=== PATIENT | female | born 1980 | race Caucasian/White ===

== ENCOUNTER 2018-11-17 09:27 | Inpatient (IN) | payer BC ==
[2018-11-17] MEDS ORDERED: Sodium Chloride 0.9% 10 ML Syringe FLUSH PRN (10:02)
[2018-11-17] MEDS ORDERED: Ondansetron 4 MG/2 ML SDV IVPUSH PRN (10:02)
[2018-11-17] MEDS ORDERED: Nalbuphine 20 MG/ML 1 ML Syringe IVPUSH PRN (10:02)
[2018-11-17] MEDS ORDERED: Oxytocin/Lactated Ringers 10 UNIT/1,000 ML BAG IV SCH ×2 (10:15)
[2018-11-17] MEDS: Lactated Ringers 1,000 ML IV SCH ×2 (11:23→14:46)
[2018-11-17] MEDS ORDERED: fentaNYL 100 MCG/2 ML SDV EPIDUR PRN (11:52)
[2018-11-17] MEDS ORDERED: diphenhydrAMINE 50 MG/ML SDV IVPUSH PRN (11:52)
[2018-11-17] MEDS ORDERED: ePHEDrine 50 MG/ML SDV IVPUSH PRN (11:52)
[2018-11-17] MEDS ORDERED: fentaNYL/Bupivacaine-NS 2 MCG/ML-0.125%/PF 100 ML Bag EP SCH (12:00)
--- NOTE | 2018-11-17 12:54 | PCM.PREANE ---
Preanesthetic Assessment - Procedure Proposed Procedure: marcio - Anesthesia/Transfusion/Family Hx Anesthesia History: Prior Anesthesia Without Reaction Family History of Anesthesia Reaction: No Transfusion History: No Prior Transfusion(s) - Review of Systems General: No Symptoms Pulmonary: No Symptoms Cardiovascular: No Symptoms Gastrointestinal: No Symptoms Neurological: No Symptoms Other: Reports: None - Physical Assessment Respiratory Rate: 18 Vital Signs: Last Vital Signs Temp 99.3 F 11/17/18 09:42 Pulse 81 11/17/18 09:42 Resp 18 11/17/18 09:42 BP 131/75 11/17/18 09:42 Pulse Ox Height: 5 ft 7 in Weight: 99.337 kg ASA Class: 2 Mental Status: Alert & Oriented x3 Airway Class: Mallampati = 1 Dentition: Reports: Normal Dentition Thyro-Mental Finger Breadths: 3 Mouth Opening Finger Breadths: 3 ROM/Head Extension: Full Lungs: Clear to Auscultation, Normal Respiratory Effort Cardiovascular: Regular Rate, Regular Rhythm - Lab Values: Laboratory Last Values WBC 11.41 K/mm3 (3.98-10.04) H 11/17/18 10:20 RBC 3.88 M/mm3 (3.98-5.22) L 11/17/18 10:20 Hgb 12.4 gm/L (11.2-15.7) 11/17/18 10:20 Hct 37.6 % (34.1-44.9) 11/17/18 10:20 MCV 96.9 fl (79.4-94.8) H 11/17/18 10:20 MCH 32.0 pg (25.6-32.2) 11/17/18 10:20 MCHC 33.0 g/dl (32.2-35.5) 11/17/18 10:20 RDW Std Deviation 44.7 fL (36.4-46.3) 11/17/18 10:20 Plt Count 222 K/mm3 (182-369) 11/17/18 10:20 MPV 10.2 fl (9.4-12.3) 11/17/18 10:20 Neut % (Auto) 75.7 % (34.0-71.1) H 11/17/18 10:20 Lymph % (Auto) 12.8 % (19.3-51.7) L 11/17/18 10:20 [place] % (Auto) 8.1 % (4.7-12.5) 11/17/18 10:20 Eos % (Auto) 1.1 (0.7-5.8) 11/17/18 10:20 Baso % (Auto) 0.2 % (0.1-1.2) 11/17/18 10:20 Neut # (Auto) 8.64 K/mm3 (1.56-6.13) H 11/17/18 10:20 Lymph # (Auto) 1.46 K/mm3 (1.18-3.74) 11/17/18 10:20 [place] # (Auto) 0.92 K/mm3 (0.24-0.36) H 11/17/18 10:20 Eos # (Auto) 0.13 K/mm3 (0.04-0.36) 11/17/18 10:20 Baso # (Auto) 0.02 K/mm3 (0.01-0.08) 11/17/18 10:20 Manual Slide Review Abnormal smear 11/17/18 10:20 - Allergies Allergies/Adverse Reactions: Allergies Allergy/AdvReac Type Severity Reaction Status Date / Time No Known Allergies Allergy Verified 11/17/18 10:01 - Blood Blood Available: No - Acknowledgements Anesthesia Type Planned: Epidural Pt an Appropriate Candidate for the Planned Anesthesia: Yes Alternatives and Risks of Anesthesia Discussed w Pt/Guardian: Yes Pt/Guardian Understands and Agrees with Anesthesia Plan: Yes PreAnesthesia Questionnaire - Past Health History Medical/Surgical History: Denies Medical/Surgical History Cardiovascular History: Reports: None Respiratory History: Reports: None Gastrointestinal History: Reports: None : 1 Para: 0 - History Comment History Comment: vits at home - SUBSTANCE USE Smoking Status *Q: Never Smoker Tobacco Use Within Last Twelve Months: No Second Hand Smoke Exposure: No Days Per Week of Alcohol Use: 0 Recreational Drug Use History: No - CURRENT (IN HOUSE) MEDS Current Meds: Current Medications Diphenhydramine HCl (Benadryl) 25 mg IVPUSH Q6H PRN PRN Reason: pruritis Ephedrine Sulfate (Ephedrine Sulfate) 5 mg IVPUSH ASDIRECTED PRN PRN Reason: Hypotension Fentanyl (Sublimaze) 100 mcg EPIDUR Q3H PRN PRN Reason: Pain Last Admin: 11/17/18 12:52 Dose: 100 mcg Fentanyl/Bupivacaine HCl (Xagoxync-Rjqog-Lf 2 Mcg/Ml-0.125%) 100 ml EP ASDIRECTED TIMOTHY Last Admin: 11/17/18 12:51 Dose: 100 ml Lactated Ringer's (Ringers, Lactated) 1,000 mls @ 100 mls/hr IV ASDIRECTED TIMOTHY Last Admin: 11/17/18 11:23 Dose: 100 mls/hr Oxytocin/Lactated Ringer's (Pitocin In Lr 10 Units/1,000 Ml) 10 unit in 1,000 mls @ 500 mls/hr IV .CONTINUOUS TIMOTHY Oxytocin/Lactated Ringer's (Pitocin In Lr 10 Units/1,000 Ml) 10 unit in 1,000 mls @ 12 mls/hr IV TITRATE TIMOTHY; Protocol Last Admin: 11/17/18 11:23 Dose: 2 munits/min, 12 mls/hr Nalbuphine HCl (Nubain) 10 mg IVPUSH Q2H PRN PRN Reason: pain Ondansetron HCl (Zofran) 4 mg IVPUSH Q4H PRN PRN Reason: Nausea/Vomiting Sodium Chloride (Saline Flush) 10 ml FLUSH ASDIRECTED PRN PRN Reason: Keep Vein Open
--- NOTE | 2018-11-17 14:34 | PCM.LDHP ---
L&D History of Present Illness - General Date of Service: 11/17/18 Admit Problem/Dx: Patient Status Order with Admit Dx/Problem 11/17/18 13:45 Admission Status [Patient Status] [ADT] Routine Admission Diagnosis/Problem Admission Diagnosis/Problem 11/17/18 14:26 Cleo is a 38-year-old 1 para 0 white female admitted in active labor with advanced cervical dilation. ALICIA is 11/11/2018 placer presently at 40 and 67 weeks gestational age. Source of Information: Patient History Limitations: Reports: No Limitations - History of Present Illness Introduction:: Cleo is a 38-year-old 1 para 0 white female at 40 and 6 weeks gestational age admitted in active labor. Has had onset of labor early this morning. No evidence rupture members at the time of admission. She has undergone artificial rupture membranes with resultant clear amniotic fluid. Contractions occurring every 3-7 minutes. CHECKER IN history 1 para 0 ALICIA 2018 as set by early ultrasound done at 12-6/7 weeks on 05/05/2018. Supported by second ultrasound done on 07/08/2018. Patient had menarche at age 14. Cycles every 28 days. Positive hCG on 03/21/2018. course was relatively unremarkable. Risk factors were advanced maternal age and primigravida status. Baby had initially a choroid plexus cyst but this result a second ultrasound. [place] depression screens: was score of 1/30. She is group B strep negative. She had [employer] testing which returned normal. She is desiring epidural in labor and delivery. Plans on breast-feeding. Tdap was given on 10/05/2018. Patient's first visit was on 05/05/2018. She had rated visits throughout the course with normal fundal height growth and normal vital signs. Her weight gain was from 176-212 pounds for a 36 pound weight gain. laboratory testing showed her blood to be positive with a negative rescue. First problems 13.6 g deciliter. Platelets at that time were 234,000. She is rubella immune. RPR is nonreactive. Urine culture was negative. GC and chlamydia assays are both negative as were the hepatitis B surface antigen and HIV assays. Second trimester labs show hemoglobin 12.1 g/dL. Platelets are 242,000. One-hour GTT was normal at 101. Group B strep screen negative. Allergies none Medications: 1. vitamins daily Past medical history: History of UTIs 10 years ago. Past surgical history 1. [place] tooth extraction 2008. 2. Nerve repair surgery 1999 Family history: Mother has had a history of miscarriage 2. Otherwise she is alive and well. Father is diagnosed with leukemia 2009. Also had asthma and rheumatoid arthritis. 2 brothers and 4 sisters with one sister with MS and one with thyroid disease. Maternal grandmother breast cancer history. Family history of cancer. She related issues and bleeding disorders. 3 aunts with breast cancer or over the age of 65. One and one with full mastectomy. Social history: Patient is . is Akbar Drummond. They live in [place]. She does not use any significant loss of call, drugs tobacco. Review of systems: In general patient has no complaints other than contractions. Baby has been active.. Skin: Negative Lungs: No infectious symptoms or shortness of breath Cardiovascular: No chest pain or exercise intolerance Breasts: No lumps, changes in size, pain, dimpling, discharge or axillary or supraclavicular concerns. GI: Negative : Negative other than changes associated with . Musculoskeletal: Negative Neurological: Negative In general the patient is well-developed, well-nourished, pleasant female of stated age in no acute distress. Is reporting contractions. Skin is warm dry without lesions. HEENT, neck and back within normal limits. Lungs are clear with good breath sounds in all lung solorio. Cardiovascular exam shows regular and rhythm without murmurs. Breast exam is deferred having been done at time of first visit found to be normal. Abdomen is gravid, fundal height consistent with gestational age. Last fundal height in clinic Genital shows cervix works as above. Extremities and neurological exam are grossly within normal limits. Pain Score: 8 - Related Data Allergies/Adverse Reactions: Allergies Allergy/AdvReac Type Severity Reaction Status Date / Time No Known Allergies Allergy Verified 11/17/18 10:01 Past Medical History - Past Health History Medical/Surgical History: Denies Medical/Surgical History Cardiovascular History: Reports: None Respiratory History: Reports: None Gastrointestinal History: Reports: None - History Comment History Comment: vits at home Social & Family History - Family History Family Medical History: Noncontributory - Tobacco Use Smoking Status *Q: Never Smoker Second Hand Smoke Exposure: No - Caffeine Use Caffeine Use: Reports: None - Alcohol Use Days Per Week of Alcohol Use: 0 - Recreational Drug Use Recreational Drug Use: No H&P Review of Systems - Review of Systems: Review Of Systems: See Below L&D Exam - Exam Exam: See Below - Vital Signs Vital Signs: Last Vital Signs Temp 37.4 C 11/17/18 09:42 Pulse 81 11/17/18 09:42 Resp 18 11/17/18 12:54 BP 131/75 11/17/18 09:42 Pulse Ox Weight: 99.337 kg - Patient Data Lab Results Last 24 hrs: Laboratory Results - last 24 hr 11/17/18 Range/Units 10:20 WBC 11.41 H (3.98-10.04) K/mm3 RBC 3.88 L (3.98-5.22) M/mm3 Hgb 12.4 (11.2-15.7) gm/L Hct 37.6 (34.1-44.9) % MCV 96.9 H (79.4-94.8) fl MCH 32.0 (25.6-32.2) pg MCHC 33.0 (32.2-35.5) g/dl RDW Std Deviation 44.7 (36.4-46.3) fL Plt Count 222 (182-369) K/mm3 MPV 10.2 (9.4-12.3) fl Neut % (Auto) 75.7 H (34.0-71.1) % Lymph % (Auto) 12.8 L (19.3-51.7) % [place] % (Auto) 8.1 (4.7-12.5) % Eos % (Auto) 1.1 (0.7-5.8) Baso % (Auto) 0.2 (0.1-1.2) % Neut # (Auto) 8.64 H (1.56-6.13) K/mm3 Lymph # (Auto) 1.46 (1.18-3.74) K/mm3 [place] # (Auto) 0.92 H (0.24-0.36) K/mm3 Eos # (Auto) 0.13 (0.04-0.36) K/mm3 Baso # (Auto) 0.02 (0.01-0.08) K/mm3 Manual Slide Review Abnormal smear Result Diagrams: 11/17/18 10:20 Problem List Initiated/Reviewed/Updated: Yes Orders Last 24hrs: Active Orders 24 hr Category Date Time Status Admission Status [Patient Status] [ADT] Routine ADT 11/17/18 13:45 Active Activity as Tolerated [RC] PFP Care 11/17/18 10:02 Active Communication Order [RC] ASDIRECTED Care 11/17/18 10:02 Active Heart Tones [RC] ASDIRECTED Care 11/17/18 10:02 Active Notify Provider [RC] ASDIRECTED Care 11/17/18 11:52 Active Notify Provider [RC] PFP Care 11/17/18 10:02 Active Notify Provider [RC] PRN Care 11/17/18 10:02 Active Peripheral IV Care [RC] . DIRECTED Care 11/17/18 10:02 Active Vital Signs [RC] PER UNIT ROUTINE Care 11/17/18 10:02 Active Regular Diet [DIET] Diet 11/17/18 Lunch Active RAPID PLASMA REAGIN,RPR [CHEM] Routine Lab 11/17/18 10:20 Received Lactated Ringers [Ringers, Lactated] 1,000 ml Med 11/17/18 10:15 Active IV ASDIRECTED Nalbuphine [Nubain] Med 11/17/18 10:02 Active 10 mg IVPUSH Q2H PRN Ondansetron [Zofran] Med 11/17/18 10:02 Active 4 mg IVPUSH Q4H PRN Oxytocin/Lactated Ringers [Pitocin in LR 10 Units/1,000 Med 11/17/18 10:15 Active ML] 10 unit in 1,000 ml IV .CONTINUOUS Oxytocin/Lactated Ringers [Pitocin in LR 10 Units/1,000 Med 11/17/18 10:15 Active ML] 10 unit in 1,000 ml IV TITRATE Sodium Chloride 0.9% [Saline Flush] Med 11/17/18 10:02 Active 10 ml FLUSH ASDIRECTED PRN diphenhydrAMINE [Benadryl] Med 11/17/18 11:52 Active 25 mg IVPUSH Q6H PRN ePHEDrine [ePHEDrine sulfate] Med 11/17/18 11:52 Active 5 mg IVPUSH ASDIRECTED PRN fentaNYL [Sublimaze] Med 11/17/18 11:52 Active 100 mcg EPIDUR Q3H PRN fentaNYL/Bupivacaine/NS/PF [aklqoIAZ-Iyadr-VL 2 MCG/ML- Med 11/17/18 12:00 Active 0.125%] 100 ml EP ASDIRECTED Electronic Heart Tones Ext w TOCO [WOMSER] Oth 11/17/18 10:02 Ordered Routine Electronic Heart Tones Internal [WOMSER] Per Unit Oth 11/17/18 10:02 Ordered Routine Peripheral IV Insertion Adult [OM.PC] Routine Oth 11/17/18 10:02 Ordered Resuscitation Status Routine Resus Stat 11/17/18 10:02 Ordered Medication Orders Diphenhydramine HCl (Benadryl) 25 mg IVPUSH Q6H PRN PRN Reason: pruritis Ephedrine Sulfate (Ephedrine Sulfate) 5 mg IVPUSH ASDIRECTED PRN PRN Reason: Hypotension Fentanyl (Sublimaze) 100 mcg EPIDUR Q3H PRN PRN Reason: Pain Last Admin: 11/17/18 12:52 Dose: 100 mcg Fentanyl/Bupivacaine HCl (Yaqsglzh-Wxqju-Oa 2 Mcg/Ml-0.125%) 100 ml EP ASDIRECTED TIMOTHY Last Admin: 11/17/18 12:51 Dose: 100 ml Lactated Ringer's (Ringers, Lactated) 1,000 mls @ 100 mls/hr IV ASDIRECTED TIMOTHY Last Admin: 11/17/18 11:23 Dose: 100 mls/hr Oxytocin/Lactated Ringer's (Pitocin In Lr 10 Units/1,000 Ml) 10 unit in 1,000 mls @ 500 mls/hr IV .CONTINUOUS TIMOTHY Oxytocin/Lactated Ringer's (Pitocin In Lr 10 Units/1,000 Ml) 10 unit in 1,000 mls @ 12 mls/hr IV TITRATE TIMOTHY; Protocol Last Titration: 11/17/18 13:47 Dose: 4 munits/min, 24 mls/hr Admin: 11/17/18 11:23 Dose: 2 munits/min, 12 mls/hr Nalbuphine HCl (Nubain) 10 mg IVPUSH Q2H PRN PRN Reason: pain Ondansetron HCl (Zofran) 4 mg IVPUSH Q4H PRN PRN Reason: Nausea/Vomiting Sodium Chloride (Saline Flush) 10 ml FLUSH ASDIRECTED PRN PRN Reason: Keep Vein Open Assessment/Plan Comment:: 1. 38 and 6 of week intrauterine , active labor, advanced cervical dilation. 2. Epidural for pain control in labor and delivery 3. Patient plans to breast-feed 4. RPR nonreactive, T dap up today 5. Group B strep screen negative Plan: 1. Anticipate normal spontaneous vaginal delivery 2. Epidural for pain control. 3. Breast-feeding support with consultants.
--- NOTE | 2018-11-17 17:21 | PCM.SN ---
- Free Text/Narrative Note: Delivery note: Cleo is a 38-year-old 1 now para 1001 white female was admitted in active labor on 11/17/2018. She is 40-6/7 weeks gestational age with an ALICIA of 11/11/2018. She progressed steadily towards complete cervical dilation by approximately 1430 hrs. She pushed for approximately 2-1/2 hours at which time she is becoming tired, some occasional late decelerations were being noted and decision was made to proceed to vacuum extraction delivery. The procedure, risks , benefits, alternatives such as and follow-up were discussed with patient. She appeared to understand, gave verbal approval and underwent vacuum extraction delivery. She had an epidural placed for labor analgesia. Vacuum extractor was placed and during the course of 1 contraction and baby's head was delivered. Delivered in a right occiput anterior position. Baby was placed on mom's abdomen. Cord was clamped 2 and cut by the baby's father. Cord blood was obtained. The umbilical cord had 3 vessels. Patient had a second-degree laceration with a small tear in the anterior capsule of the external anal sphincter. The capsule was repaired and the second- degree lacerations appear along with a small tear perpendicular to the perineal tear along the right medial labia. 3-0 Monocryl was used for the entire repair. Patient tolerated this well and epidural analgesia was used for laceration repair anesthesia. Placenta delivered in a Nichols presentation, appeared intact and complete and was discarded per patient desire. Pitocin had been started after delivery of the baby to facilitate increase in uterine tone and decrease the risk of bleeding. Estimated blood loss was 300 mL. Patient plans to breast-feed. Condition: Good
[2018-11-17] MEDS ORDERED: Acetaminophen 325 MG Tab PO PRN (17:33)
[2018-11-17] MEDS ORDERED: Witch Hazel Medicated Pads 40/Jar TOP PRN (17:33)
[2018-11-17] MEDS ORDERED: Lanolin 100% Cream 7 GM Tube TOP PRN (17:33)
[2018-11-17] MEDS ORDERED: Benzocaine/Menthol 20%-0.5% Spray 56 GM Canister TOP PRN (17:33)
[2018-11-17] MEDS: Docusate Sodium 100 MG Cap PO PRN (17:59)
[2018-11-17] MEDS: Ibuprofen 600 MG Tab PO PRN (17:59)
[2018-11-17] MEDS ORDERED: Lidocaine 1.5% with EPINEPHrine 1:200,000 5 ML Amp ONE (22:00)
[2018-11-17] MEDS ORDERED: Bupivacaine 0.25% 10 ML SDV ONE (22:00)
[2018-11-18] MEDS: Ibuprofen 600 MG Tab PO PRN ×2 (05:41→21:01)
--- NOTE | 2018-11-18 09:08 | PCM48HPAN ---
Post Anesthesia Note - EVALUATION WITHIN 48HRS OF ANESTHETIC Vital Signs in Normal Range: Yes Patient Participated in Evaluation: Yes Respiratory Function Stable: Yes Airway Patent: Yes Cardiovascular Function Stable: Yes Hydration Status Stable: Yes Pain Control Satisfactory: Yes Nausea and Vomiting Control Satisfactory: Yes Mental Status Recovered: Yes
--- NOTE | 2018-11-18 10:56 | PCM.SN ---
- Free Text/Narrative Note: Post Progress Note PPD # 1 Subjective: Doing well overall. Ambulating without difficulty. Lochia minimal. Voiding without difficulty. Tolerating regular diet without nausea or vomiting. Pain controlled with oral medications. Breast-feeding with minimal difficulty. Objective: Vitals: Vital Signs - 24 hr 11/17/18 11/18/18 11/18/18 12:54 04:19 08:21 Temperature 37.3 C 36.7 C Pulse, 88 73 Peripheral Respiratory 18 16 16 Rate Blood Pressure 108/65 111/61 O2 Sat by Pulse 99 99 Oximetry Physical Exam General: Alert and oriented, no acute distress Lungs: Clear to auscultation bilaterally Heart: Regular rate and rhythm Abdomen: Soft, minimal appropriate tenderness, non-distended, fundus midline, nontender, and at the umbilicus Extremities: Trace edema in bilateral lower extremities to mid shins ASSESSMENT: 38-year-old female s/p vacuum-assisted vaginal delivery PPD #1, complicated by advanced maternal age PLAN: Doing well Breast-feeding with minimal difficulty. Assist as needed Lochia minimal. Continue to monitor for appropriate lochia. Continue routine care Anticipate discharge home tomorrow Dwain Nelson MD 10:55 AM 11/18/2018
[2018-11-19] MEDS: Ibuprofen 600 MG Tab PO PRN ×2 (08:33→16:33)
[2018-11-19] MEDS: Docusate Sodium 100 MG Cap PO PRN (08:33)
[2018-11-19] MEDS ORDERED: Magnesium Hydroxide 400 MG/5 ML Susp 30 ML Cup PO ONE (11:40)
--- NOTE | 2018-11-19 11:46 | PCM.SN ---
- Free Text/Narrative Note: Post Progress Note PPD # 2 Subjective: Doing well overall. Ambulating without difficulty. Lochia minimal. Voiding without difficulty. Tolerating regular diet without nausea or vomiting. Pain decreasing and controlled with oral medications. Breast-feeding with formula stimulation for latching and otherwise minimal difficulty. Patient reports that she has not had a bowel movement in several days and has been taking the Colace stool softener. She is passing flatus without difficulty. Objective: Vitals: Vital Signs - 24 hr 11/18/18 11/18/18 11/19/18 18:16 20:49 03:24 Temperature 36.6 C 37.4 C 36.9 C Pulse, 87 92 75 Peripheral Respiratory 14 16 15 Rate Blood Pressure 127/65 112/59 L 99/58 L O2 Sat by Pulse 97 99 98 Oximetry Physical Exam General: Alert and oriented, no acute distress Lungs: Clear to auscultation bilaterally Heart: Regular rate and rhythm Abdomen: Soft, minimal appropriate tenderness, non-distended, fundus midline, nontender, and 2 fingerbreadths below the umbilicus Extremities: Trace edema in bilateral lower extremities to mid shins ASSESSMENT: 38-year-old female s/p vacuum-assisted vaginal delivery PPD #2, complicated by advanced maternal age PLAN: Doing well Breast-feeding with formula stimulation for latching. Assist as needed Lochia minimal. Continue to monitor for appropriate lochia. Milk of magnesia 30 mL 1 dose this morning prior to discharge to help with mild constipation after delivery. Continue routine care Discharge home today Dwain Nelson MD 11:45 AM 11/19/2018
--- NOTE | 2018-11-19 11:54 | PCM.DCSUM1 ---
Discharge Summary - Hospital Course Free Text/Narrative:: Delivery note: Cleo is a 38-year-old 1 now para 1001 white female was admitted in active labor on 11/17/2018. She is 40-6/7 weeks gestational age with an ALICIA of 11/11/2018. She progressed steadily towards complete cervical dilation by approximately 1430 hrs. She pushed for approximately 2-1/2 hours at which time she is becoming tired, some occasional late decelerations were being noted and decision was made to proceed to vacuum extraction delivery. The procedure, risks , benefits, alternatives such as and follow-up were discussed with patient. She appeared to understand, gave verbal approval and underwent vacuum extraction delivery. She had an epidural placed for labor analgesia. Vacuum extractor was placed and during the course of 1 contraction and baby's head was delivered. Delivered in a right occiput anterior position. Baby was placed on mom's abdomen. Cord was clamped 2 and cut by the baby's father. Cord blood was obtained. The umbilical cord had 3 vessels. Patient had a second-degree laceration with a small tear in the anterior capsule of the external anal sphincter. The capsule was repaired and the second- degree lacerations appear along with a small tear perpendicular to the perineal tear along the right medial labia. 3-0 Monocryl was used for the entire repair. Patient tolerated this well and epidural analgesia was used for laceration repair anesthesia. Placenta delivered in a Nichols presentation, appeared intact and complete and was discarded per patient desire. Pitocin had been started after delivery of the baby to facilitate increase in uterine tone and decrease the risk of bleeding. Estimated blood loss was 300 mL. Patient plans to breast-feed. Condition: Good HPI Initial Comments: Delivery note: Cleo is a 38-year-old 1 now para 1001 white female was admitted in active labor on 11/17/2018. She is 40-6/7 weeks gestational age with an ALICIA of 11/11/2018. She progressed steadily towards complete cervical dilation by approximately 1430 hrs. She pushed for approximately 2-1/2 hours at which time she is becoming tired, some occasional late decelerations were being noted and decision was made to proceed to vacuum extraction delivery. The procedure, risks , benefits, alternatives such as and follow-up were discussed with patient. She appeared to understand, gave verbal approval and underwent vacuum extraction delivery. She had an epidural placed for labor analgesia. Vacuum extractor was placed and during the course of 1 contraction and baby's head was delivered. Delivered in a right occiput anterior position. Baby was placed on mom's abdomen. Cord was clamped 2 and cut by the baby's father. Cord blood was obtained. The umbilical cord had 3 vessels. Patient had a second-degree laceration with a small tear in the anterior capsule of the external anal sphincter. The capsule was repaired and the second- degree lacerations appear along with a small tear perpendicular to the perineal tear along the right medial labia. 3-0 Monocryl was used for the entire repair. Patient tolerated this well and epidural analgesia was used for laceration repair anesthesia. Placenta delivered in a Nichols presentation, appeared intact and complete and was discarded per patient desire. Pitocin had been started after delivery of the baby to facilitate increase in uterine tone and decrease the risk of bleeding. Estimated blood loss was 300 mL. Patient plans to breast-feed. Condition: Good Brief History: Delivery note: Cleo is a 38-year-old 1 now para 1001 white female was admitted in active labor on 11/17/2018. She is 40-6/7 weeks gestational age with an ALICIA of 11/11/2018. She progressed steadily towards complete cervical dilation by approximately 1430 hrs. She pushed for approximately 2-1/2 hours at which time she is becoming tired, some occasional late decelerations were being noted and decision was made to proceed to vacuum extraction delivery. The procedure, risks, benefits, alternatives such as C- section and follow-up were discussed with patient. She appeared to understand, gave verbal approval and underwent vacuum extraction delivery. She had an epidural placed for labor analgesia. Vacuum extractor was placed and during the course of 1 contraction and baby's head was delivered. Delivered in a right occiput anterior position. Baby was placed on mom's abdomen. Cord was clamped 2 and cut by the baby's father. Cord blood was obtained. The umbilical cord had 3 vessels. Patient had a second-degree laceration with a small tear in the anterior capsule of the external anal sphincter. The capsule was repaired and the second-degree lacerations appear along with a small tear perpendicular to the perineal tear along the right medial labia. 3-0 Monocryl was used for the entire repair. Patient tolerated this well and epidural analgesia was used for laceration repair anesthesia. Placenta delivered in a Nichols presentation, appeared intact and complete and was discarded per patient desire. Pitocin had been started after delivery of the baby to facilitate increase in uterine tone and decrease the risk of bleeding. Estimated blood loss was 300 mL. Patient plans to breast-feed. Condition: Good Diagnosis: Stroke: No - Discharge Data Discharge Date: 11/19/18 Discharge Disposition: Home, Self-Care 01 Condition: Good - Discharge Diagnosis/Problem(s) (1) 40 weeks gestation of SNOMED Code(s): 19314375 ICD Code: Z3A.40 - 40 WEEKS GESTATION OF Status: Acute Current Visit: Yes (2) Advanced maternal age, primigravida SNOMED Code(s): 41700092 ICD Code: O09.519 - SUPERVISION OF ELDERLY PRIMIGRAVIDA, UNSPECIFIED TRIMESTER Status: Acute Current Visit: Yes (3) Vacuum extraction, delivered, current hospitalization SNOMED Code(s): 266016632 ICD Code: O66.5 - ATTEMPTED APPLICATION OF VACUUM EXTRACTOR AND FORCEPS Status: Acute Current Visit: Yes (4) Vaginal delivery SNOMED Code(s): 673857856 ICD Code: O80 - ENCOUNTER FOR FULL-TERM UNCOMPLICATED DELIVERY Status: Acute Current Visit: Yes (5) Second degree perineal laceration during delivery SNOMED Code(s): 3357346 ICD Code: O70.1 - SECOND DEGREE PERINEAL LACERATION DURING DELIVERY Status : Acute Current Visit: Yes - Patient Summary/Data Operative Procedure(s) Performed: Vacuum-assisted vaginal delivery Complications: None Consults: None Hospital Course: Cleo Drummond was admitted for active labor. She was GBS negative. She was given an epidural for anesthesia. She had artificial rupture of membranes with clear fluid. She progressed to complete and began pushing. On 11/17/2018 she had a vacuum-assisted vaginal delivery of a live male at 1652. Apgars of 8 and 9. Weight of 3780 g (8 pounds 5.3 ounces). Her course was uneventful. Her pain was well controlled and she had minimal lochia. She was ambulating, tolerating a regular diet and voiding normally. She was breast- feeding with formula stimulation for latch otherwise with minimal difficulty. She was afebrile and her hematocrit was 37.6 on admission. She desired to be discharged home on the morning of PPD #2. Her blood type is O+. - Patient Instructions Diet: Regular Diet as Tolerated Activity: Apply Ice, As Tolerated Activity, Other: Nothing in the vagina for 6 weeks Driving: May Drive Today Showering/Bathing: May Shower Notify Provider of: Fever, Increased Pain, Swelling and Redness, Drainage, Nausea and/or Vomiting Other/Special Instructions: Please contact your physician's office if you have heavy vaginal bleeding enough to soak a pad in less than an hour for several hours. Monitor for any signs of an infection in the breasts with severe pain or redness of the breast. - Discharge Plan *PRESCRIPTION DRUG MONITORING PROGRAM REVIEWED*: Not Applicable *COPY OF PRESCRIPTION DRUG MONITORING REPORT IN PATIENT RADHA: Not Applicable Home Medications: Home Meds Acetaminophen [Tylenol] 650 mg PO Q6H PRN tablet 11/19/18 [Rx] Benzocaine/Menthol [Dermoplast Pain Relief [place]] 1 spray TOP ASDIRECTED PRN canister 11/19/18 [Rx] Docusate Sodium [Colace] 100 mg PO BID PRN cap 11/19/18 [Rx] Ibuprofen [Motrin] 600 mg PO Q6H PRN tablet 11/19/18 [Rx] Lanolin [Lansinoh HPA] 1 applic TOP ASDIRECTED PRN tube 11/19/18 [Rx] Witch Lexi [Tucks] 1 pad TOP ASDIRECTED PRN pad 11/19/18 [Rx] Patient Handouts: Vaginal Delivery, Care After, Care of a Perineal Tear Referrals: Percy Wallace MD [Primary Care Provider] - (Follow-up in 2-3 weeks for routine visit or earlier as needed.) - Discharge Summary/Plan Comment DC Time >30 min.: No - Patient Data Vitals - Most Recent: Last Vital Signs Temp 36.9 C 11/19/18 03:24 Pulse 75 11/19/18 03:24 Resp 15 11/19/18 03:24 BP 99/58 L 11/19/18 03:24 Pulse Ox 98 11/19/18 03:24 Weight - Most Recent: 99.337 kg I&O - Last 24 hours: Intake & Output 11/18/18 11/19/18 11/19/18 22:59 06:59 14:59 Intake Total 320 120 Balance 320 120 Med Orders - Current: Current Medications Acetaminophen (Tylenol) 650 mg PO Q4H PRN PRN Reason: mild pain or fever Benzocaine/Menthol (Dermoplast Pain Relief [place]) 0 gm TOP ASDIRECTED PRN PRN Reason: Perineal Comfort Measure Last Admin: 11/17/18 18:00 Dose: 1 jar Docusate Sodium (Colace) 100 mg PO BID PRN PRN Reason: Constipation Last Admin: 11/19/18 08:33 Dose: 100 mg Emollient Ointment (Lansinoh Hpa) 0 gm TOP ASDIRECTED PRN PRN Reason: Sore Nipples Ibuprofen (Motrin) 600 mg PO Q4H PRN PRN Reason: Mild pain or fever Last Admin: 11/19/18 08:33 Dose: 600 mg Witch Lexi (Tucks) 1 pad TOP ASDIRECTED PRN PRN Reason: Pain Last Admin: 11/17/18 18:00 Dose: 1 can Discontinued Medications Bupivacaine HCl (Sensorcaine-Mpf 0.25%) 10 ml .ROUTE .STK-MED ONE Stop: 11/17/18 22:01 Diphenhydramine HCl (Benadryl) 25 mg IVPUSH Q6H PRN PRN Reason: pruritis Ephedrine Sulfate (Ephedrine Sulfate) 5 mg IVPUSH ASDIRECTED PRN PRN Reason: Hypotension Fentanyl (Sublimaze) 100 mcg EPIDUR Q3H PRN PRN Reason: Pain Last Admin: 11/17/18 12:52 Dose: 100 mcg Fentanyl/Bupivacaine HCl (Xqdtfuau-Uzqdq-Vl 2 Mcg/Ml-0.125%) 100 ml EP ASDIRECTED TIMOTHY Last Admin: 11/17/18 12:51 Dose: 100 ml Lactated Ringer's (Ringers, Lactated) 1,000 mls @ 100 mls/hr IV ASDIRECTED TIMOTHY Last Admin: 11/17/18 14:46 Dose: 100 mls/hr Oxytocin/Lactated Ringer's (Pitocin In Lr 10 Units/1,000 Ml) 10 unit in 1,000 mls @ 500 mls/hr IV .CONTINUOUS TIMOTHY Oxytocin/Lactated Ringer's (Pitocin In Lr 10 Units/1,000 Ml) 10 unit in 1,000 mls @ 12 mls/hr IV TITRATE TIMOTHY; Protocol Last Titration: 11/17/18 13:47 Dose: 4 munits/min, 24 mls/hr Lidocaine/Epinephrine (Xylocaine-Mpf 1.5% W/Epinephrine 1:200,000) 5 ml .ROUTE .STK-MED ONE Stop: 11/17/18 22:01 Magnesium Hydroxide (Milk Of Magnesia) 30 ml PO ONETIME ONE Stop: 11/19/18 11:41 Nalbuphine HCl (Nubain) 10 mg IVPUSH Q2H PRN PRN Reason: pain Ondansetron HCl (Zofran) 4 mg IVPUSH Q4H PRN PRN Reason: Nausea/Vomiting Sodium Chloride (Saline Flush) 10 ml FLUSH ASDIRECTED PRN PRN Reason: Keep Vein Open
== END 2018-11-19 16:45 | disposition home or self-care (01) | DRG 560 ==
LOC: JD.OBCHECK 09:27 → JD.OB 09:30 → JD.OBCHECK 13:44 → JD.OB 13:45 → OBSVTOIN 16:52 → JD.OB 16:53
PROVIDERS: ADMIT Obstetrics & Gynecology; ATTEND Obstetrics & Gynecology
PROC: 0KQM0ZZ Repair Perineum Muscle, Open Approach (ICD-10-PCS; principal; 2018-11-17)
PROC: 6A550ZT Pheresis of Cord Blood Stem Cells, Single (ICD-10-PCS; principal; 2018-11-17)
PROC: 10907ZC Drainage of Amniotic Fluid, Therapeutic from Products of Conception, Via Natural or Artificial Opening (ICD-10-PCS; principal; 2018-11-17)
PROC: 10D07Z6 Extraction of Products of Conception, Vacuum, Via Natural or Artificial Opening (ICD-10-PCS; principal; 2018-11-17)
PROC: 3E0R3BZ Introduction of Anesthetic Agent into Spinal Canal, Percutaneous Approach (ICD-10-PCS; 2018-11-17)
PROC: 00HU33Z Insertion of Infusion Device into Spinal Canal, Percutaneous Approach (ICD-10-PCS; 2018-11-17)
DX: O48.0 Post-term pregnancy (principal); Z3A.40 40 weeks gestation of pregnancy; O76 Abnormality in fetal heart rate and rhythm complicating labor and delivery; O70.1 Second degree perineal laceration during delivery; O99.63 Diseases of the digestive system complicating the puerperium; K59.00 Constipation, unspecified; O75.81 Maternal exhaustion complicating labor and delivery
CPT/HCPCS: 36415; 51702; 59025; 59409; 85025; 86592; A9270-GY; J2590; J3010; J3490; J7120

== ENCOUNTER 2020-06-26 06:59 | Inpatient (IN) | payer BC ==
[~2020-06-26 06:59] MED LIST: Bupivacaine 0.25% 10 ML SDV ONE
[2020-06-26] MEDS ORDERED: Sodium Chloride 0.9% 10 ML Syringe FLUSH PRN (07:21)
[2020-06-26] MEDS ORDERED: Ondansetron 4 MG/2 ML SDV IVPUSH PRN (07:21)
[2020-06-26] MEDS ORDERED: Acetaminophen 325 MG Tab PO PRN ×2 (07:21→17:52)
[2020-06-26] MEDS ORDERED: Nalbuphine 10 MG/ML Syringe IVPUSH PRN (07:21)
--- NOTE | 2020-06-26 07:28 | PCM.LDHP ---
L&D History of Present Illness - General Date of Service: 06/26/20 Admit Problem/Dx: Admission Diagnosis/Problem Admission Diagnosis/Problem 06/26/20 07:19 Cleo is a 40-year-old 2 para 1-0-0-1 white female who is presently at 40-0/7 weeks gestational age with an ALICIA of 06/26/2020 who was admitted for elective induction of labor. Source of Information: Patient History Limitations: Reports: No Limitations - History of Present Illness Introduction:: Cleo is a 40-year-old 2 para 1-0-0-1 white female who is presently at 40-0/7 weeks gestational age with an ALICIA of 06/26/2020 who was admitted for elective induction of labor. The process and procedure of labor induction is discussed in detail with patient. Her last evaluation clinic on 06/20/2020 showed a cervix measuring 2+ centimeters, 80% effaced, very soft, -3, mid position in cephalic presentation. She appears to understand and wishes to proceed with induction of labor. 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 Her ALICIA of 06/26/2020 was determined by a certain last menstrual period starting 09/15/2019. It is supported by an ultrasound done on 12/18/2019. Patient had menarche at age 14. Cycles are regular. Last menstrual period started 09/20/2019 and was definite. She is not using any control at the time of conception. Previous delivery included the following: Male born 11/17/2016 at 40-6/7 weeks gestational age after 8 hours of labor. 8 pound 5 ounce delivered by vacuum extraction delivery at [facility]. She had an epidural for analgesia. Child's name is Fabricio Segovia. course. Patient was initially seen for this at 19 weeks gestation. She is seen on a regular basis since that time. Her weight gain during the has been from 192.4 pounds up to 229 pounds for a 37 pound increase. Vital signs been stable throughout the course. course has been relatively unremarkable. She had her Tdap on 05/09/2020. She is rubella immune. Hepatitis A vaccination was given in 2011. Hepatitis B vaccination was given in 2007. Her last Td shot was in 2018 with her other pregnancies. Patient declined genetic testing. She declined flu vaccination. She has had hemorrhoids and anal fissure treated with steroids during the course of with some success. She plans to breast-feed. labs: Blood is all positive with a negative antibody screen first hemoglobin is 13.6 g/dL and platelets are 274,000. She is rubella immune. RPR is nonreactive. Patient had group B strep on her initial urine culture. Hepatitis B surface antigen and HIV assays were both negative. Chlamydia and gonorrhea assays were both negative. Second trimester labs showed a hemoglobin of 12.2 g/dL and platelets were 248,000. Her 1 hour GTT was normal at 111. Group B strep is positive. Allergies: None Medications: 1. vitamins 1 daily 2. Hydrocortisone 2.5% external ointment to be used topically as needed. Past medical history: 1. Vacuum extraction delivery 11/17/2018. 2. Chronic constipation with resultant anal fissures for which she treats with hydrocortisone external ointment. Past surgical history: 1. [place] tooth extraction 2008 2. Nerve repair 2008. Family history: Mother is alive and well. She did have 2 miscarriages. Father is alive but was diagnosed with leukemia in 2009. Also suffers from asthma and rheumatoid arthritis. 2 brothers and 4 sisters one with MS, one with thyroid disorder. 1 brother has lost twins at 5 months. Maternal grandmother has history of breast cancer. Family history of cancer, related issues, bleeding clotting disorders,. There are 3 maternal aunts with breast cancer. All over the age of 65. One and one with full mastectomy. Father the baby recently discussed diagnosed with MS. Social history: Patient is , is Akbar Drummond. 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 She does not use any significant muscle alcohol, drugs or tobacco. Review of systems: In general patient has no complaints. Baby is active. No significant contractions noted. Skin: Negative Lungs: No infectious symptoms or shortness of breath Cardiovascular: No chest pain or exercise intolerance Breasts: No lumps, changes in size, pain, dimpling, discharge or axillary or supraclavicular concerns. Changes associated with . Patient plans to breast-feed. GI: Negative : Body habitus changes associated with . Musculoskeletal: Negative Neurological: Negative Physical exam: In general the patient is well-developed, well-nourished, pleasant female of stated age in no acute distress. Evaluation clinic on 06/20/2020 patient's weight was 229.2 pounds which was increased from 192.4 pounds. Height is 5 feet 7. Prepregnancy body mass index is 27.6. heart rate was 158. Skin is warm dry without lesions. HEENT, neck and back within normal limits. Lungs are clear with good breath sounds in all lung solorio. Cardiovascular exam shows regular and rhythm without murmurs. Exam is deferred having been done at first visit found to be normal. Patient plans to breast-feed. Abdomen is gravid with last fundal height in clinic at 38.5 cm. Baby in vertex presentation by Lucas maneuvers. Genital per bimanual shows normal external genitalia, BUS, pubic hair pattern. There is normal support, secretions and estrogenization vagina. Cervix on last evaluation clinic was 2+ centimeters, 80% effaced, very soft, -3 station, mid position, vertex presentation. Bag of german was intact. Extremities show trace edema on last evaluation clinic. Neurological exam are grossly within normal limits. - Related Data Allergies/Adverse Reactions: Allergies Allergy/AdvReac Type Severity Reaction Status Date / Time No Known Allergies Allergy Verified 11/17/18 10:01 Home Medications: Home Meds Acetaminophen [Tylenol] 650 mg PO Q6H PRN tablet 11/19/18 [Rx] Benzocaine/Menthol [Dermoplast Pain Relief [place]] 1 spray TOP ASDIRECTED PRN canister 11/19/18 [Rx] Docusate Sodium [Colace] 100 mg PO BID PRN cap 11/19/18 [Rx] Ibuprofen [Motrin] 600 mg PO Q6H PRN tablet 11/19/18 [Rx] Lanolin [Lansinoh HPA] 1 applic TOP ASDIRECTED PRN tube 11/19/18 [Rx] witch Silvia [Tucks] 1 pad TOP ASDIRECTED PRN pad 11/19/18 [Rx] Past Medical History - Past Health History Medical/Surgical History: Denies Medical/Surgical History Cardiovascular History: Reports: None Respiratory History: Reports: None Gastrointestinal History: Reports: None - History Comment History Comment: vits at home Social & Family History - Family History Family Medical History: Noncontributory - Caffeine Use Caffeine Use: Reports: None H&P Review of Systems - Review of Systems: Review Of Systems: See Below L&D Exam - Exam Exam: See Below Problem List Initiated/Reviewed/Updated: Yes Assessment/Plan Comment:: 1. Cleo is a 40-year-old 2 para 1-0-0-1 white female who is presently at 40-0/7 weeks gestational age with an ALICIA of 06/26/2020 who was admitted for elective induction of labor. 2. Risk factors for the include age of 40. Group B strep positive status. 3. Patient plans to breast-feed. 4. Rubella immune 5. Patient has received her Tdap during 6. Patient is sitting epidural in labor and delivery. 4. Hemorrhoids and anal fissure bothersome during treated with steroid ointment. Plan: 1. We will assess status of cervix and station to see whether induction can be initiated with a round. If not will initiate Pitocin induction and will do AROM when possible. 2. Group B strep prophylaxis with ampicillin 2 g initially and 1 g every 4 hours thereafter IV 3. Anticipate normal spontaneous vaginal delivery 4. Support breast-feeding plan 5. Routine labor care 6. Epidural as needed per patient desire
[2020-06-26] MEDS ORDERED: Oxytocin/Lactated Ringers 10 UNIT/1,000 ML BAG IV SCH ×2 (07:30)
[2020-06-26] MEDS: Lactated Ringers 1,000 ML IV SCH ×3 (07:55→13:12)
[2020-06-26] MEDS ORDERED: Ampicillin 2 GM in Sodium Chloride 0.9% 100 ML IV ONE (08:00)
[2020-06-26] MEDS ORDERED: diphenhydrAMINE 50 MG/ML SDV IVPUSH PRN (09:53)
[2020-06-26] MEDS ORDERED: ePHEDrine 50 MG/ML SDV IVPUSH PRN (09:53)
[2020-06-26] MEDS ORDERED: Bupivacaine/fentaNYL/NS 100 ML Bag EPIDUR PRN (09:53)
[2020-06-26] MEDS ORDERED: fentaNYL 100 MCG/2 ML SDV EPIDUR PRN (09:53)
--- NOTE | 2020-06-26 10:28 | PCM.PREANE ---
Preanesthetic Assessment - Procedure Proposed Procedure: Labor Epidural - Anesthesia/Transfusion/Family Hx Anesthesia History: Prior Anesthesia Without Reaction Family History of Anesthesia Reaction: No Transfusion History: No Prior Transfusion(s) - Review of Systems General: No Symptoms Pulmonary: No Symptoms Cardiovascular: No Symptoms Gastrointestinal: No Symptoms Neurological: No Symptoms Other: Reports: None - Physical Assessment Vital Signs: Last Vital Signs Temp 36.9 C 06/26/20 07:15 Pulse 89 06/26/20 07:15 Resp 16 06/26/20 07:15 BP 133/88 06/26/20 07:15 Pulse Ox 96 06/26/20 07:15 Height: 1.68 m Weight: 103.419 kg ASA Class: 2 Mental Status: Alert & Oriented x3 Airway Class: Mallampati = 2 Dentition: Reports: Normal Dentition Thyro-Mental Finger Breadths: 3 Mouth Opening Finger Breadths: 3 ROM/Head Extension: Full Lungs: Clear to Auscultation, Normal Respiratory Effort Cardiovascular: Regular Rate, Regular Rhythm - Lab Values: Laboratory Last Values WBC 10.92 K/mm3 (3.98-10.04) H 06/26/20 07:35 RBC 3.93 M/mm3 (3.98-5.22) L 06/26/20 07:35 Hgb 12.2 gm/dl (11.2-15.7) 06/26/20 07:35 Hct 38.0 % (34.1-44.9) 06/26/20 07:35 MCV 96.7 fl (79.4-94.8) H 06/26/20 07:35 MCH 31.0 pg (25.6-32.2) 06/26/20 07:35 MCHC 32.1 g/dl (32.2-35.5) L 06/26/20 07:35 RDW Std Deviation 45.8 fL (36.4-46.3) 06/26/20 07:35 Plt Count 231 K/mm3 (182-369) 06/26/20 07:35 MPV 9.8 fl (9.4-12.3) 06/26/20 07:35 Neut % (Auto) 75.7 % (34.0-71.1) H 06/26/20 07:35 Lymph % (Auto) 13.0 % (19.3-51.7) L 06/26/20 07:35 [place] % (Auto) 7.9 % (4.7-12.5) 06/26/20 07:35 Eos % (Auto) 2.0 (0.7-5.8) 06/26/20 07:35 Baso % (Auto) 0.3 % (0.1-1.2) 06/26/20 07:35 Neut # (Auto) 8.27 K/mm3 (1.56-6.13) H 06/26/20 07:35 Lymph # (Auto) 1.42 K/mm3 (1.18-3.74) 06/26/20 07:35 [place] # (Auto) 0.86 K/mm3 (0.24-0.36) H 06/26/20 07:35 Eos # (Auto) 0.22 K/mm3 (0.04-0.36) 06/26/20 07:35 Baso # (Auto) 0.03 K/mm3 (0.01-0.08) 06/26/20 07:35 Manual Slide Review Normal smear 06/26/20 07:35 SARS-CoV-2 RNA (JO) Negative (NEGATIVE) 06/26/20 07:19 Blood Type O POSITIVE 06/26/20 07:35 Gel Antibody Screen Negative 06/26/20 07:35 - Allergies Allergies/Adverse Reactions: Allergies Allergy/AdvReac Type Severity Reaction Status Date / Time No Known Allergies Allergy Verified 06/26/20 09:01 - Acknowledgements Anesthesia Type Planned: Epidural Pt an Appropriate Candidate for the Planned Anesthesia: Yes Alternatives and Risks of Anesthesia Discussed w Pt/Guardian: Yes Pt/Guardian Understands and Agrees with Anesthesia Plan: Yes PreAnesthesia Questionnaire - Past Health History Medical/Surgical History: Denies Medical/Surgical History Cardiovascular History: Reports: None Respiratory History: Reports: None Gastrointestinal History: Reports: None Other Gastrointestinal History: anal fissures Genitourinary History: Reports: Other (See Below) Other Genitourinary History: chronic UTI over 10 years ago 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 [place] teeth extraction 2008 - History Comment History Comment: vits at home - HOME MEDS Home Medications: Home Meds Vits #93/Iron Fum/FA [ Formula Tablet] 1 tab DAILY 06/26/20 [History] - CURRENT (IN HOUSE) MEDS Current Meds: Current Medications Acetaminophen (Tylenol) 650 mg PO Q4H PRN PRN Reason: Pain (Mild 1-3) and fever Diphenhydramine HCl (Benadryl) 25 mg IVPUSH Q6H PRN PRN Reason: pruritis Ephedrine Sulfate (Ephedrine Sulfate) 5 mg IVPUSH ASDIRECTED PRN PRN Reason: Hypotension Fentanyl (Sublimaze) 100 mcg EPIDUR Q3H PRN PRN Reason: Pain Last Admin: 06/26/20 10:01 Dose: 100 mcg Documented by: Fentanyl/Bupivacaine HCl (Fentanyl/Bupivacaine/Ns 2 Mcg-0.125% 100 Ml) 100 ml EPIDUR ASDIRECTED PRN PRN Reason: Pain Last Admin: 06/26/20 10:02 Dose: 100 ml Documented by: Ampicillin Sodium 1 gm/ Sodium (Chloride) 100 mls @ 200 mls/hr IV Q4H TIMOTHY Oxytocin/Lactated Ringer's (Pitocin In Lr 10 Units/1,000 Ml) 10 unit in 1,000 mls @ 12 mls/hr IV TITRATE TIMOTHY; Protocol Last Titration: 06/26/20 08:50 Dose: 6 munits/min, 36 mls/hr Documented by: Oxytocin/Lactated Ringer's (Pitocin In Lr 10 Units/1,000 Ml) 10 unit in 1,000 mls @ 500 mls/hr IV .CONTINUOUS TIMOTHY Lactated Ringer's (Ringers, Lactated) 1,000 mls @ 100 mls/hr IV ASDIRECTED TIMOTHY Last Admin: 06/26/20 10:23 Dose: 100 mls/hr Documented by: Nalbuphine HCl (Nubain) 10 mg IVPUSH Q2H PRN PRN Reason: Pain Ondansetron HCl (Zofran) 4 mg IVPUSH Q4H PRN PRN Reason: Nausea/Vomiting Sodium Chloride (Saline Flush) 10 ml FLUSH ASDIRECTED PRN PRN Reason: Keep Vein Open Discontinued Medications Ampicillin Sodium 2 gm/ Sodium (Chloride) 100 mls @ 200 mls/hr IV ONETIME ONE Stop: 06/26/20 08:29 Last Admin: 06/26/20 07:55 Dose: 200 mls/hr Documented by:
[2020-06-26] MEDS: Ampicillin 1 GM in Sodium Chloride 0.9% 100 ML IV SCH ×2 (11:59→18:24)
[2020-06-26] MEDS ORDERED: Witch Hazel Medicated Pads 40/Jar TOP PRN ×2 (15:12→17:52)
[2020-06-26] MEDS ORDERED: Benzocaine/Menthol 20%-0.5% Spray 56 GM Canister TOP PRN ×2 (15:12→17:52)
--- NOTE | 2020-06-26 17:20 | PCM.SN.2 ---
- Free Text/Narrative Note: Delivery note: Cleo is a 40-year-old 2 para 2-0-0-2 white female who was presently at 40-0/7 weeks gestational age with an ALICIA of 06/26/2020 who was admitted for elective induction of labor. Patient was started on IV antibiotics with ampicillin per protocol for group B strep positive status. Pitocin was started to induce labor and this was followed by artificial rupture membranes approximately 2 to 3 hours later. With this patient's labor became very effective and at approximately 1300 hrs. and she was noted to be completely dilated. She had an epidural in place for labor analgesia and was very comfortable with this. At 1350 she delivered a viable, sutton, female named tamie in a direct occiput anterior position. The baby weighed 3610 g (7 pounds 15.5 ounces), had Apgars of 8 and 9 and a length of 20.5 inches. The baby was placed on mom's abdomen, dried with warm blanket and nose mouth were bulb suction. The Pitocin was increased to 500 cc an hour to facilitate increase in uterine tone and decrease likelihood of bleeding. Patient had a first-degree laceration involving just superficial vaginal epithelium. This was a laceration extending lateral to the right labia, cephalad in the right sulcus of the vagina and into the perineal body. It was repaired with 3-0 Monocryl suture in a routine fashion. Cord bloods obtained. The umbilical cord had 3 vessels. The placenta then delivered in a Nichols presentation. Appeared intact and complete and was discarded per patient desire. Estimated blood loss was 100 cc. Patient plans to breast-feed. Condition: Good.
[2020-06-26] MEDS ORDERED: Docusate Sodium 100 MG Cap PO PRN (17:52)
[2020-06-26] MEDS: Ibuprofen 600 MG Tab PO PRN (18:11)
[2020-06-27] MEDS: Ibuprofen 600 MG Tab PO PRN ×3 (00:25→11:33)
--- NOTE | 2020-06-27 08:38 | PCM.DCSUM1 ---
Discharge Summary - Hospital Course Free Text/Narrative:: Cleo is a 40-year-old 2 para 2-0-0-2 white female who was presently at 40-0/7 weeks gestational age with an ALICIA of 06/26/2020 who was admitted for elective induction of labor. Patient was started on IV antibiotics with ampicillin per protocol for group B strep positive status. Pitocin was started to induce labor and this was followed by artificial rupture membranes approximately 2 to 3 hours later. With this patient's labor became very effec tive and at approximately 1300 hrs. and she was noted to be completely dilated. She had an epidural in place for labor analgesia and was very comfortable with this. At 1350 she delivered a viable, sutton, female named tamie in a direct occiput anterior position. The baby weighed 3610 g (7 pounds 15.5 ounces), had Apgars of 8 and 9 and a length of 20.5 inches. The baby was placed on mom's abdomen, dried with warm blanket and nose mouth were bulb suction. The Pitocin was increased to 500 cc an hour to facilitate increase in uterine tone and decrease likelihood of bleeding. Patient had a first-degree laceration involving just superficial vaginal epithelium. This was a laceration extending lateral to the right labia, cephalad in the right sulcus of the vagina and into the perineal body. It was repaired with 3-0 Monocryl suture in a routine fashion. Cord bloods obtained. The umbilical cord had 3 vessels. The placenta then delivered in a Nichols presentation. Appeared intact and complete and was discarded per patient desire. Estimated blood loss was 100 cc. Patient plans to breast-feed. patient is done well. She is ambulating well. Has minimal lochia. She is voiding without concerns. She is desiring discharge home. Condition: Good. Diagnosis: Stroke: No - Discharge Data Discharge Date: 06/27/20 Discharge Disposition: Home, Self-Care 01 Condition: Good - Referral to Home Health Primary Care Physician: PCP None - Patient Instructions Diet: Regular Diet as Tolerated (Nursing diet with increased calories and calcium as recommended) Activity: As Tolerated (No intercourse or tampons until bleeding resolves) Driving: May Drive Today Showering/Bathing: May Shower Showering/Bathing, Other: May take a bath - Discharge Plan Home Medications: Home Meds Vits #93/Iron Fum/FA [ Formula Tablet] 1 tab DAILY 06/26/20 [History] Acetaminophen [Tylenol] 650 mg PO Q4H PRN tablet 06/27/20 [Rx] Ibuprofen [Motrin] 600 mg PO Q4H PRN tablet 06/27/20 [Rx] Referrals: Percy Wallace MD [Physician] - (Return to clinicDr. Wallace or Barbara Minas2 weeks.) - Discharge Summary/Plan Comment DC Time >30 min.: No Discharge Summary/Plan Comment: Discharge instructions: 1. Discharge home 2. Diet, activity and follow-up discussed with patient. Recommend nursing diet with increased calories and calcium. 3. Precautions given concern increased pain, bleeding, temperature, signs/symptoms of DVT/PE. 4. Medications per home medication was printed, discussed with and given to the patient. 5. Return to clinic-Dr. Wallace or Barbara Coronel-[facility] [place] in 2 weeks. Diagnosis: Term -delivered Condition: Good - Patient Data Vitals - Most Recent: Last Vital Signs Temp 37.2 C 06/27/20 03:31 Pulse 83 06/27/20 03:31 Resp 15 06/27/20 03:31 BP 108/54 L 06/27/20 03:32 Pulse Ox 99 06/27/20 03:31 Weight - Most Recent: 103.419 kg I&O - Last 24 hours: Intake & Output 06/26/20 06/27/20 06/27/20 22:59 06:59 14:59 Intake Total 3200 Balance 3200 Lab Results - Last 24 hrs: Laboratory Results - last 24 hr 06/26/20 06/26/20 Range/Units 07:35 07:35 RPR Non-reactive (NONREACTIVE) Blood Type O POSITIVE Gel Antibody Screen Negative Med Orders - Current: Current Medications Acetaminophen (Tylenol) 650 mg PO Q4H PRN PRN Reason: mild pain or fever Benzocaine/Menthol (Dermoplast Pain Relief [place]) 0 gm TOP ASDIRECTED PRN PRN Reason: Perineal Comfort Measure Last Admin: 06/26/20 16:00 Dose: 1 canister Documented by: Docusate Sodium (Colace) 100 mg PO BID PRN PRN Reason: Constipation Ibuprofen (Motrin) 600 mg PO Q4H PRN PRN Reason: Mild pain or fever Last Admin: 06/27/20 05:57 Dose: 600 mg Documented by: Prenat Multivit/B2B Sales Professional/Iron/Folic Ac ( Plus Iron) 1 each PO DAILY [facility] Lois Elliott (Tucks) 1 pad TOP ASDIRECTED PRN PRN Reason: Perineal Comfort Measure Last Admin: 06/26/20 16:00 Dose: 1 tub Documented by: Discontinued Medications Acetaminophen (Tylenol) 650 mg PO Q4H PRN PRN Reason: Pain (Mild 1-3) and fever Benzocaine/Menthol (Dermoplast Pain Relief [place]) 1 gm TOP ASDIRECTED PRN PRN Reason: Pain Diphenhydramine HCl (Benadryl) 25 mg IVPUSH Q6H PRN PRN Reason: pruritis Ephedrine Sulfate (Ephedrine Sulfate) 5 mg IVPUSH ASDIRECTED PRN PRN Reason: Hypotension Fentanyl (Sublimaze) 100 mcg EPIDUR Q3H PRN PRN Reason: Pain Last Admin: 06/26/20 10:01 Dose: 100 mcg Documented by: Fentanyl/Bupivacaine HCl (Fentanyl/Bupivacaine/Ns 2 Mcg-0.125% 100 Ml) 100 ml EPIDUR ASDIRECTED PRN PRN Reason: Pain Last Admin: 06/26/20 10:02 Dose: 100 ml Documented by: Ampicillin Sodium 2 gm/ Sodium (Chloride) 100 mls @ 200 mls/hr IV ONETIME ONE Stop: 06/26/20 08:29 Last Admin: 06/26/20 07:55 Dose: 200 mls/hr Documented by: Ampicillin Sodium 1 gm/ Sodium (Chloride) 100 mls @ 200 mls/hr IV Q4H TIMOTHY Last Admin: 06/26/20 18:24 Dose: Not Given Documented by: Oxytocin/Lactated Ringer's (Pitocin In Lr 10 Units/1,000 Ml) 10 unit in 1,000 mls @ 12 mls/hr IV TITRATE TIMOTHY; Protocol Last Titration: 06/26/20 13:50 Dose: 166.5 munits/min, 999 mls/hr Documented by: Oxytocin/Lactated Ringer's (Pitocin In Lr 10 Units/1,000 Ml) 10 unit in 1,000 mls @ 500 mls/hr IV .CONTINUOUS TMIOTHY Lactated Ringer's (Ringers, Lactated) 1,000 mls @ 100 mls/hr IV ASDIRECTED TIMOTHY Last Admin: 06/26/20 13:12 Dose: 100 mls/hr Documented by: Nalbuphine HCl (Nubain) 10 mg IVPUSH Q2H PRN PRN Reason: Pain Ondansetron HCl (Zofran) 4 mg IVPUSH Q4H PRN PRN Reason: Nausea/Vomiting Sodium Chloride (Saline Flush) 10 ml FLUSH ASDIRECTED PRN PRN Reason: Keep Vein Open Lois Elliott (Tyrese) 1 pad TOP ASDIRECTED PRN PRN Reason: Pain
[2020-06-27] MEDS ORDERED: Prenatal Multivitamin with Calcium/Folic Acid/Iron Tab PO SCH (09:00)
== END 2020-06-27 15:30 | disposition home or self-care (01) | DRG 560 ==
LOC: JD.OB 06:59 → OBSVTOIN 13:50 → JD.OB 13:50
PROVIDERS: ADMIT Obstetrics & Gynecology; ATTEND Obstetrics & Gynecology
PROC: 10E0XZZ Delivery of Products of Conception, External Approach (ICD-10-PCS; principal; 2020-06-26)
PROC: 10907ZC Drainage of Amniotic Fluid, Therapeutic from Products of Conception, Via Natural or Artificial Opening (ICD-10-PCS; 2020-06-26)
PROC: 3E033VJ Introduction of Other Hormone into Peripheral Vein, Percutaneous Approach (ICD-10-PCS; 2020-06-26)
PROC: 0HQ9XZZ Repair Perineum Skin, External Approach (ICD-10-PCS; 2020-06-26)
PROC: 3E0R3BZ Introduction of Anesthetic Agent into Spinal Canal, Percutaneous Approach (ICD-10-PCS; 2020-06-26)
PROC: 00HU33Z Insertion of Infusion Device into Spinal Canal, Percutaneous Approach (ICD-10-PCS; 2020-06-26)
DX: O99.824 Streptococcus B carrier state complicating childbirth (principal); Z3A.40 40 weeks gestation of pregnancy; Z37.0 Single live birth; Z20.828 Contact with and (suspected) exposure to other viral communicable diseases; O70.0 First degree perineal laceration during delivery; Z79.899 Other long term (current) drug therapy
CPT/HCPCS: 01967; 36415; 51702; 59025; 59409; 85025; 86592; 86850; 86900; 86901; A9270-GY; J0290; J2590; J3010; J3490; J7050; J7120; U0002

== ENCOUNTER 2021-05-25 02:53 | Emergency (ER) | payer BC ==
--- NOTE | 2021-05-25 04:12 | EDM.PDOC ---
ED HPI GENERAL MEDICAL PROBLEM - General Chief Complaint: Fever Stated Complaint: FEVER Time Seen by Provider: 05/25/21 04:06 Source of Information: Reports: Patient History Limitations: Reports: No Limitations - History of Present Illness INITIAL COMMENTS - FREE TEXT/NARRATIVE: 40-year-old female presents to the ED with her daughter. She has been having GI symptoms with queasiness and nausea and inability to eat with persistent diarrhea yellow-green and mucousy almost every hour to hour and a half even without eating. No cough or sputum production no nasal congestion or sore throat. She is pending a run running a low-grade fever. No severe abdominal cramping pain. Has been symptomatic for about 3 days. She states actually she is feeling little bit better now than she has for the last 3 days. Onset: Sudden Onset Date: 05/22/21 Duration: Day(s):, Waxing/Waning Location: Reports: Abdomen (Nausea associate with difficulty eating. Intermittent cramping lower abdominal pain with green mucousy stools) Quality: Reports: Ache (Mild abdominal ache.) Severity: Mild Improves with: Reports: Rest Worsens with: Reports: Eating (And drinking) Context: Denies: Activity, Exercise, Lifting, Sick Contact, Trauma, Other Associated Symptoms: Reports: Loss of Appetite, Malaise, Nausea/Vomiting (Nausea persists.). Denies: No Other Symptoms, Confusion, Chest Pain, Cough, cough w sputum, Diaphoresis, Fever/Chills, Headaches, Rash, Seizure, Shortness of Breath, Syncope, Weakness, Other Treatments DIRECT RESPONSE CONSULTANT: Reports: Acetaminophen - Related Data Allergies Allergy/AdvReac Type Severity Reaction Status Date / Time No Known Allergies Allergy Verified 06/26/20 09:01 Home Meds: Home Meds Vits #93/Iron Fum/FA [ Formula Tablet] 1 tab DAILY 06/26/20 [History] Acetaminophen [Tylenol] 650 mg PO Q4H PRN tablet 06/27/20 [Rx] Ibuprofen [Motrin] 600 mg PO Q4H PRN tablet 06/27/20 [Rx] Past Medical History - Past Health History Medical/Surgical History: Denies Medical/Surgical History Cardiovascular History: Reports: None Respiratory History: Reports: None Gastrointestinal History: Reports: None Other Gastrointestinal History: anal fissures Genitourinary History: Reports: Other (See Below) Other Genitourinary History: chronic UTI over 10 years ago TOOL CARRIER History: Reports: , Other (See Below) Other TOOL CARRIER History: labial cyst - Past Surgical History HEENT Surgical History: Reports: Oral Surgery, Other (See Below) Other HEENT Surgeries/Procedures: Lingual nerve repair 2009. [place] teeth extraction 2009 - History Comment History Comment: vits at home Social & Family History - Family History Family Medical History: No Pertinent Family History - Tobacco Use Tobacco Use Status *Q: Never Tobacco User - Caffeine Use Caffeine Use: Reports: None - Living Situation & Occupation Living situation: Reports: Occupation: Employed ED ROS GENERAL - Review of Systems Review Of Systems: See Below Constitutional: Reports: Fever, Malaise, Fatigue, Decreased Appetite. Denies: Chills (Up to 100 degrees) HEENT: Reports: No Symptoms Respiratory: Reports: No Symptoms Cardiovascular: Reports: No Symptoms Endocrine: Reports: Fatigue GI/Abdominal: Reports: Diarrhea (Make green mucousy stools about every hour and a half even if she does not eat.), Nausea : Reports: No Symptoms Musculoskeletal: Reports: No Symptoms Skin: Reports: No Symptoms Neurological: Reports: No Symptoms Psychiatric: Reports: No Symptoms Hematologic/Lymphatic: Reports: No Symptoms Immunologic: Reports: No Symptoms ED EXAM, GI/ABD - Physical Exam Exam: See Below Exam Limited By: No Limitations General Appearance: Alert, WD/WN, No Apparent Distress, Other (Temperature is 36.6 degrees. Heart rate 100 and sinus respiratory is 18 with O2 sats of 98% room air BP 127/83) Eyes: Bilateral: Normal Appearance Ears: Normal TMs Throat/Mouth: Normal Inspection, Normal Lips, Normal Teeth, Normal Oropharynx Head: Atraumatic, Normocephalic Neck: Normal Inspection, Supple, Non-Tender, Full Range of Motion. No: Lymphadenopathy (L), Lymphadenopathy (R) Respiratory/Chest: No Respiratory Distress, Lungs Clear, Normal Breath Sounds, No Accessory Muscle Use Cardiovascular: Normal Peripheral Pulses, Regular Rate, Rhythm, No Edema, No Gallop, No Murmur, No Rub GI/Abdominal Exam: Normal Bowel Sounds, Soft, Non-Tender, No Organomegaly, No Mass, Pelvis Stable. No: Guarding, Rigid, Rebound, Tender Back Exam: Normal Inspection, Full Range of Motion. No: CVA Tenderness (L), CVA Tenderness (R) Extremities: Normal Inspection, Normal Range of Motion, Non-Tender, No Pedal Edema Neurological: Alert, Oriented, CN II-XII Intact, Normal Cognition Psychiatric: Normal Affect, Normal Mood Skin Exam: Warm, Dry, Intact, Normal Color, No Rash Course - Vital Signs Last Recorded V/S: Last Vital Signs Temp 36.6 C 05/25/21 03:15 Pulse 100 05/25/21 03:15 Resp 18 05/25/21 03:15 BP 127/83 05/25/21 03:15 Pulse Ox 98 05/25/21 03:15 - Orders/Labs/Meds Labs: Laboratory Tests 05/25/21 Range/Units 03:00 SARS-CoV-2 RNA (JO) Negative (NEGATIVE) - Radiology Interpretation Free Text/Narrative:: 40-year-old female presents to the ED with a 3-day history of intermittent nausea with decreased appetite and green mucousy diarrhea stools every hour and a half or so. Associated low-grade fever. No chills. No cough or sputum production no nasal congestion or sore throat. 4-year-old has been ill the last couple days with fever but is better now. Currently she is with her daughter who is 10 months and 29 days with high fever of 103 degrees. She has evidence of bilateral otitis media and pharyngitis with tonsillitis. Plan COVID-19 screen to be done. At present she does not wish to have any Zofran. - Re-Assessments/Exams Free Text/Narrative Re-Assessment/Exam: 05/25/21 04:12 influenza screen is negative. 05/25/21 04:20 COVID-19 screen is negative. It appears that her current illness is more to do with viral gastroenteritis. Offered Zofran but at this time she declined. She feels she can work through this illness at present as it seems to be getting better. Therefore conservative treatment only. Modify diet to clear fluids and avoid milk products until stools are formed back up. Departure - Departure Time of Disposition: 04:22 Disposition: Home, Self-Care 01 Condition: Fair Clinical Impression: Viral gastroenteritis - Discharge Information *PRESCRIPTION DRUG MONITORING PROGRAM REVIEWED*: Not Applicable *COPY OF PRESCRIPTION DRUG MONITORING REPORT IN PATIENT RADHA: Not Applicable Instructions: Viral Gastroenteritis, Adult Referrals: PCP,None [Primary Care Provider] - Forms: ED Department Discharge Additional Instructions: Evaluation in the emergency room tonight in regards to not feeling well for the better part of 3 days with intermittent nausea upset stomach and persistent green-yellow mucousy stools. No clinical evidence of COVID-19 and COVID-19 screen proved to be negative. Suspect viral gastroenteritis. Suggest fluids such as Gatorade or Powerade which are very similar to IV fluids to rehydrate. Avoid dairy products and no apple juice or grape juice until stools are formed back up. Resume diet as able. Sepsis Event Note (ED) - Evaluation Sepsis Screening Result: No Definite Risk
== END 2021-05-25 04:40 | disposition home or self-care (01) ==
LOC: JD.ED 02:53
DX: A08.4 Viral intestinal infection, unspecified (principal); H66.93 Otitis media, unspecified, bilateral; J03.90 Acute tonsillitis, unspecified; Z20.822 Contact with and (suspected) exposure to COVID-19
CPT/HCPCS: 87804; 99282; 99284; U0002

== ENCOUNTER 2022-06-06 17:03 | Emergency (ER) | payer BC ==
[2022-06-06] MEDS ORDERED: Sodium Chloride 0.9% 1,000 ML IV SCH (18:45)
[2022-06-06] MEDS ORDERED: Ondansetron 4 MG/2 ML SDV IVPUSH ONE (20:12)
[2022-06-06] MEDS ORDERED: LORazepam 2 MG/ML SDV IVPUSH ONE (21:25)
[2022-06-06] MEDS ORDERED: Prochlorperazine 10 MG/2 ML SDV IVPUSH ONE (21:25)
== END 2022-06-06 22:04 | disposition home or self-care (01) ==
LOC: JD.ED 17:03
DX: R42 Dizziness and giddiness (principal); R11.2 Nausea with vomiting, unspecified
CPT/HCPCS: 36415; 80053; 81001; 81025; 83735; 85025; 96361; 96374; 99284; J2405; J7030; 99283